=== PATIENT | female | born 1985 | race Two or more races ===

== ENCOUNTER 2022-01-13 12:32 | Emergency (ER) | payer SELFPAY ==
[~2022-01-13] VITALS: Ht 170.2 cm; Wt 74.8 kg
[2022-01-13 12:57] VITALS: BP 144/84
[2022-01-13 14:56] LABS: Hepatitis B Surface Antibody Negative (Negative)
== END 2022-01-13 14:25 | disposition home or self-care (01) ==
LOC: ER 12:32
DX: S61.231A Puncture wound without foreign body of left index finger without damage to nail, initial encounter (principal); W46.0XXA Contact with hypodermic needle, initial encounter; Y93.89 Activity, other specified; Y92.89 Other specified places as the place of occurrence of the external cause; Y99.8 Other external cause status
CPT/HCPCS: 36415; 86703; 86706; 86803; 87340